=== PATIENT | male | born 1970 | race Hispanic/Latino ===

== ENCOUNTER 2022-06-14 03:23 | Inpatient (IN) | payer OTHER ==
[~2022-06-14] VITALS: Ht 180.3 cm; Wt 123.3 kg
[2022-06-14 03:42] LABS: BASOPHILS % (AUTO) 0.6 % (0.0-5.0); EOSINOPHILS % (AUTO) 2.1 % (0.0-8.0); HEMATOCRIT 40.8 % (42-54); LYMPHOCYTES % (AUTO) 25.1 % (21.0-51.0); MEAN CORPUSCULAR HEMOGLOBIN 30.1 pg (27.0-33.0); MEAN CORPUSCULAR HGB CONC 34.1 g/dL (32.0-36.0); MEAN CORPUSCULAR VOLUME 88.3 fL (79-99); MONOCYTES % (AUTO) 8.1 % (3.0-13.0); NEUTROPHILS % (AUTO) 63.7 % (40.0-77.0); PLATELET COUNT (AUTO) 182 K/uL (130-400); RED BLOOD CELL COUNT(AUTO) 4.62 MIL/uL (4.50-6.20); RED CELL DISTRIBUTION WIDTH 13.5 % (11.0-15.5); WHITE BLOOD COUNT (AUTO) 7.1 K/uL (4.8-10.8)
[2022-06-14 03:52] LABS: POTASSIUM 3.8 mmol/L (3.5-5.1)
[2022-06-14 03:56] LABS: ALBUMIN 3.8 g/dL (3.5-5.0); TOTAL PROTEIN, SERUM 7.7 g/dL (6.0-8.3)
[2022-06-14] MEDS ORDERED: OMEP40CA21 PO (05:24)
[2022-06-14] MEDS ORDERED: ONDA-104 PO (05:24)
[2022-06-14] MEDS ORDERED: AMLO5TAB4 PO (05:26)
[2022-06-14] MEDS ORDERED: HYDRALAZINE 20MG/ML VIAL IV ONE (05:30)
[2022-06-14] MEDS ORDERED: NITROGLYCERIN 0.4 MG SL TAB SL PRN (05:30)
[2022-06-14] MEDS ORDERED: NITR.4 SL (05:32)
[2022-06-14] MEDS ORDERED: ACETAMINOPHEN 325 MG TAB PO PRN ×2 (08:00)
[2022-06-14] MEDS ORDERED: LISINOPRIL 20 MG TABLET PO SCH (08:00)
[2022-06-14] MEDS ORDERED: ONDANSETRON 4MG INJ IV PRN (08:00)
[2022-06-14] MEDS ORDERED: NITROGLYCERIN 1GM OINT 1 INCH/1GM TD SCH (08:00)
[2022-06-14] MEDS ORDERED: LOSARTAN 100 MG TABLET PO SCH (08:00)
[2022-06-14] MEDS ORDERED: ATORVASTATIN 40 MG TABLET PO ONE (08:30)
[2022-06-14] MEDS ORDERED: ASPIRIN 325MG TAB PO ONE (08:30)
[2022-06-14 08:56] LABS: HEMOGLOBIN A1C 12.4 % (4.0-6.0)
[2022-06-14] MEDS: METOPROLOL TARTRATE 25 MG TAB PO SCH ×3 (08:59→20:32)
[2022-06-14] MEDS: FAMOTIDINE 20MG TAB PO SCH ×2 (08:59→20:32)
[2022-06-14] MEDS: LOSARTAN 50 MG TABLET PO SCH (09:00)
[2022-06-14] MEDS: HYDROCHLOROTHIAZIDE 25 MG TABLET PO SCH ×2 (09:00→09:06)
[2022-06-14] MEDS ORDERED: NIFEDIPINE 10 MG CAP PO SCH (09:00)
[2022-06-14] MEDS: NITROGLYCERIN 1GM OINT 1 INCH/1GM TD SCH ×2 (09:01→17:08)
[2022-06-14] MEDS: ENOXAPARIN SODIUM 40 MG/0.4 ML SYRINGE SQ SCH (09:02)
[2022-06-14] MEDS ORDERED: ATOR10 PO (09:53)
[2022-06-14] MEDS ORDERED: HYDR25TA PO (09:53)
[2022-06-14] MEDS ORDERED: GLIM4TAB36 PO (09:53)
[2022-06-14] MEDS ORDERED: LISI20TA24 PO (09:53)
[2022-06-14] MEDS ORDERED: CARV6.25 PO (09:53)
[2022-06-14] MEDS ORDERED: METF-446 PO (09:53)
[2022-06-14] MEDS: INSULIN HUMULIN R 100 UNIT/ML 3ML SQ SCH ×3 (11:23→20:33)
[2022-06-14 22:30] VITALS: BP 148/85
[2022-06-15] MEDS: NITROGLYCERIN 1GM OINT 1 INCH/1GM TD SCH ×2 (00:17→08:43)
[2022-06-15 04:00] VITALS: BP 149/77
[2022-06-15 04:54] LABS: CHOLESTEROL 105 mg/dL (<200); HDL CHOLESTEROL 43 mg/dL (29-71); LDL DIRECT 43 mg/dL (0-99); TRIGLYCERIDES 181 mg/dL (30-200)
[2022-06-15] MEDS: INSULIN HUMULIN R 100 UNIT/ML 3ML SQ SCH ×4 (06:04→20:23)
[2022-06-15 08:00] VITALS: BP 154/93
[2022-06-15] MEDS: LOSARTAN 50 MG TABLET PO SCH (08:44)
[2022-06-15] MEDS: ASPIRIN 81MG CHEW TAB PO SCH (08:44)
[2022-06-15] MEDS: HYDROCHLOROTHIAZIDE 25 MG TABLET PO SCH (08:45)
[2022-06-15] MEDS: METOPROLOL TARTRATE 25 MG TAB PO SCH (08:45)
[2022-06-15] MEDS: FAMOTIDINE 20MG TAB PO SCH ×2 (08:45→20:26)
[2022-06-15] MEDS: ENOXAPARIN SODIUM 40 MG/0.4 ML SYRINGE SQ SCH (08:45)
[2022-06-15] MEDS ORDERED: AMLODIPINE 5 MG TAB PO SCH (10:00)
[2022-06-15] MEDS ORDERED: CARVEDILOL 12.5 MG TABLET PO ONE (10:00)
[2022-06-15] MEDS ORDERED: AMLODIPINE 5 MG TAB PO ONE (10:00)
[2022-06-15] MEDS ORDERED: INSULIN GLARGINE 100 UNITS/ML 10 ML VIAL SQ SCH (10:00)
[2022-06-15] MEDS ORDERED: CARVEDILOL 12.5 MG TABLET PO SCH (10:00)
[2022-06-15] MEDS: EMPAGLIFLOZIN 25MG TABLET PO SCH (10:56)
[2022-06-15] MEDS: METFORMIN HCL 500 MG TAB.SR.24H PO SCH ×2 (11:11→15:53)
[2022-06-15 12:00] VITALS: BP 154/85
[2022-06-15 16:00] VITALS: BP 132/79
[2022-06-15 19:59] VITALS: BP 126/80
[2022-06-15] MEDS: ATORVASTATIN 40 MG TABLET PO SCH (20:26)
[2022-06-15] MEDS: AMLODIPINE 5 MG TAB PO SCH (20:26)
[2022-06-15] MEDS: CARVEDILOL 25 MG TABLET PO SCH (20:27)
[2022-06-15] MEDS: LISINOPRIL 20 MG TABLET PO SCH (20:27)
[2022-06-15] MEDS ORDERED: INSULIN GLARGINE 100 UNITS/ML 10 ML VIAL SQ ONE (21:00)
[2022-06-16 00:09] VITALS: BP 103/62
[2022-06-16 05:12] VITALS: BP 98/63
[2022-06-16] MEDS: INSULIN HUMULIN R 100 UNIT/ML 3ML SQ SCH ×4 (06:30→21:02)
[2022-06-16 07:10] VITALS: BP 103/72
[2022-06-16] MEDS: EMPAGLIFLOZIN 25MG TABLET PO SCH (08:27)
[2022-06-16] MEDS: ENOXAPARIN SODIUM 40 MG/0.4 ML SYRINGE SQ SCH (08:28)
[2022-06-16] MEDS: METFORMIN HCL 500 MG TAB.SR.24H PO SCH ×2 (08:28→19:01)
[2022-06-16] MEDS: FAMOTIDINE 20MG TAB PO SCH ×2 (08:28→21:04)
[2022-06-16] MEDS: AMLODIPINE 5 MG TAB PO SCH (08:29)
[2022-06-16] MEDS: LISINOPRIL 20 MG TABLET PO SCH ×3 (08:29→21:05)
[2022-06-16] MEDS: ASPIRIN 81MG CHEW TAB PO SCH (08:29)
[2022-06-16] MEDS: HYDROCHLOROTHIAZIDE 25 MG TABLET PO SCH ×2 (08:29→09:00)
[2022-06-16] MEDS: CARVEDILOL 25 MG TABLET PO SCH ×2 (08:30→09:00)
[2022-06-16 11:05] VITALS: BP 109/71
[2022-06-16 16:25] VITALS: BP 103/71
[2022-06-16 20:40] VITALS: BP 137/77
[2022-06-16] MEDS ORDERED: INSULIN GLARGINE 100 UNITS/ML 10 ML VIAL SQ SCH (21:00)
[2022-06-16] MEDS: CARVEDILOL 12.5 MG TABLET PO SCH (21:04)
[2022-06-16] MEDS: ATORVASTATIN 40 MG TABLET PO SCH (21:04)
[2022-06-17 00:44] VITALS: BP 95/59
[2022-06-17 03:50] VITALS: BP 107/68
[2022-06-17] MEDS: INSULIN HUMULIN R 100 UNIT/ML 3ML SQ SCH (06:02)
[2022-06-17 08:00] VITALS: BP 123/77
[2022-06-17] MEDS ORDERED: ASPI-1005 PO (08:18)
[2022-06-17] MEDS ORDERED: LISI20TA24 PO (08:18)
[2022-06-17] MEDS ORDERED: EMPA25TA PO (08:18)
[2022-06-17] MEDS ORDERED: ATOR40TA69 PO (08:18)
[2022-06-17] MEDS ORDERED: HYDR25TA PO (08:18)
[2022-06-17] MEDS ORDERED: CARV6.25 PO (08:18)
[2022-06-17] MEDS: METFORMIN HCL 500 MG TAB.SR.24H PO SCH (08:28)
[2022-06-17 08:29] VITALS: BP 123/77
[2022-06-17] MEDS: EMPAGLIFLOZIN 25MG TABLET PO SCH (08:29)
[2022-06-17] MEDS: FAMOTIDINE 20MG TAB PO SCH (08:29)
[2022-06-17] MEDS: ASPIRIN 81MG CHEW TAB PO SCH (08:29)
[2022-06-17] MEDS: LISINOPRIL 20 MG TABLET PO SCH (08:29)
[2022-06-17] MEDS: HYDROCHLOROTHIAZIDE 25 MG TABLET PO SCH (08:29)
[2022-06-17] MEDS: CARVEDILOL 12.5 MG TABLET PO SCH (08:29)
[2022-06-17] MEDS: ENOXAPARIN SODIUM 40 MG/0.4 ML SYRINGE SQ SCH (08:30)
== END 2022-06-17 12:13 | disposition home or self-care (01) | DRG 305 ==
LOC: EDH 03:23 → OBSVTOIN 03:24 → EDHIP 03:24 → 4AH 22:17
PROVIDERS: ADMIT Internal Medicine; ATTEND Internal Medicine
DX: I16.0 Hypertensive urgency (principal); E87.1 Hypo-osmolality and hyponatremia; E11.65 Type 2 diabetes mellitus with hyperglycemia; I10 Essential (primary) hypertension; E78.00 Pure hypercholesterolemia, unspecified; E66.9 Obesity, unspecified; R07.89 Other chest pain; Z68.37 Body mass index [BMI] 37.0-37.9, adult; Z79.899 Other long term (current) drug therapy; Z82.49 Family history of ischemic heart disease and other diseases of the circulatory system; Z83.3 Family history of diabetes mellitus; Z88.0 Allergy status to penicillin
CPT/HCPCS: 36415; 71045; 76770; 80053; 80061; 82550; 82948; 83036; 83735; 83874; 83880; 84484; 85025; 85378; 93005; 93306; 93975; G0378; J1650; J1815